=== PATIENT | female | born 1990 | race Caucasian/White ===

== ENCOUNTER 2018-08-06 09:56 | Outpatient (CLI) | payer OTHER | END 2018-08-06 09:57 | disposition home or self-care (01) | LOC: DTY/OP 09:56 | PROVIDERS: ATTEND Surgery | DX: E66.01 Morbid (severe) obesity due to excess calories (principal) | CPT/HCPCS: 97802 ==

== ENCOUNTER 2018-08-06 11:36 | Outpatient (CLI) | payer OTHER ==
[2018-08-06 12:54] LABS: Hemoglobin A1c 5.4 % (4.0-6.0)
[2018-08-06 13:09] LABS: BHCG - Serum Negative (NEGATIVE); Pregs Control Background? CLEAR/WHITE (CLR/WHITE); Pregs Control Bar Appear? YES (CONTROL BAR)
[2018-08-06 13:11] LABS: ALT (SGPT) 23 U/L (8-55); AST (SGOT) 20 U/L (5-34); Albumin 4.1 g/dL (3.5-5.0); Alkaline Phosphatase 105 U/L (40-150); Anion Gap 12 mmol/L (10-20); BUN (Urea Nitrogen) 12 mg/dL (7.0-18.7); Bilirubin, Direct 0.2 mg/dL (0.1-0.3); Bilirubin, Total 0.5 mg/dL (0.2-1.2); Calc. Creatinine Clearance 0 mL/min (70-130); Calcium 9.1 mg/dL (7.8-10.44); Carbon Dioxide 21 mmol/L (22-29); Chloride 108 mmol/L (98-107); Estimated GFR-MDRD Greater than 90; Globulin 2.8 g/dL (2.4-3.5); Glucose 91 mg/dL (70-105); Potassium 3.7 mmol/L (3.5-5.1); Protein, Total 6.9 g/dL (6.0-8.3); Sodium 137 mmol/L (136-145)
--- NOTE | 2018-08-06 15:47 | RAD ---
TWO VIEW CHEST: Comparison: None. Indication: Pre-operative evaluation. FINDINGS: The lungs are clear. No effusion or pneumothorax. Cardiac silhouette is normal is normal in size. IMPRESSION: No focal consolidation. POS: [facility]
[2018-08-06 19:30] LABS: #Basophils 0.1 thou/uL (0.0-0.2); #Eosinphils 0.1 thou/uL (0.0-0.7); #Lymphocytes 3.7 thou/uL (1.20-3.40); #Monocytes 0.8 thou/uL (0.11-0.59); #Neutrophils 4.3 thou/uL (1.40-6.50); %Basophils 1.3 % (0.0-1.0); %Eosinophils 1.2 % (0.0-10.0); %Lymphocytes 41.3 % (21.0-51.0); %Monocytes 8.6 % (0.0-10.0); %Neutrophils 47.6 % (42.0-75.0); Hemoglobin 14.5 g/dL (12.0-16.0); Mean Corpuscular Hemoglobin 30.6 pg (27.0-31.0); Mean Corpuscular Volume 92.6 fL (78.0-98.0); Mean Platelet Volume 7.5 fL (7.4-10.4); Platelet Count 255 thou/uL (130-400); RBC Distribution Width 11.5 % (11.5-14.5); Red Blood Cell (RBC) Count 4.75 mill/uL (4.20-5.40); White Blood Cell (WBC) Count 8.9 thou/uL (4.8-10.8)
== END 2018-08-06 11:37 | disposition home or self-care (01) ==
LOC: LABBT 11:36
PROVIDERS: ATTEND Surgery
DX: Z01.818 Encounter for other preprocedural examination (principal); E66.01 Morbid (severe) obesity due to excess calories
CPT/HCPCS: 71046; 80053; 80076; 83036; 84703; 85025; 93005; 93010

== ENCOUNTER 2018-08-06 16:00 | Inpatient (IN) | payer OTHER ==
[2018-08-23] MEDS ORDERED: CEFAZOLIN/Water 2 GM/20 ML SYRINGE ONE (06:38)
[2018-08-23] MEDS ORDERED: Heparin 5,000 UNITS/ML VIAL ONE (06:38)
[2018-08-23] MEDS ORDERED: Bupivacaine/Epinephrine 0.25% 30 ML VIAL ONE (06:57)
[2018-08-23] MEDS ORDERED: Fentanyl 100 MCG/2 ML VIAL ONE (07:21)
[2018-08-23] MEDS ORDERED: Midazolam HCl 2 mg/2 ml Vial ONE ×2 (07:21→07:26)
[2018-08-23] MEDS ORDERED: HYDROmorphone 2 MG/ML VIAL ONE ×2 (07:21→09:29)
[2018-08-23] MEDS ORDERED: HYDROmorphone 10 mg/100 ml CADD IVPB PRN (08:23)
[2018-08-23] MEDS ORDERED: Naloxone HCl 0.4 mg/ml Vial IV PRN (08:23)
[2018-08-23] MEDS ORDERED: HYDROmorphone 2 MG/ML VIAL SLOW IVP PRN (08:23)
[2018-08-23] MEDS ORDERED: Ondansetron PF 4 MG/2 ML Vial IVP PRN ×2 (08:23→08:56)
[2018-08-23] MEDS ORDERED: diphenhydrAMINE 25 MG CAP PO PRN (08:23)
[2018-08-23] MEDS ORDERED: Zolpidem Tartrate 5 MG TAB PO PRN (08:23)
[2018-08-23] MEDS ORDERED: Ondansetron HCl/PF 4 MG/2 ML Vial IVP PRN (08:23)
[2018-08-23] MEDS ORDERED: diphenhydrAMINE 50 MG/ML VIAL IVP PRN ×2 (08:23→08:56)
[2018-08-23] MEDS ORDERED: diphenhydrAMINE 50 MG/ML VIAL IM PRN (08:23)
[2018-08-23] MEDS ORDERED: Meperidine HCl/PF 25 MG/ML VIAL SLOW IVP PRN (08:23)
[2018-08-23] MEDS ORDERED: Promethazine HCl 25 MG/ML VIAL SLOW IVP PRN (08:23)
[2018-08-23] MEDS ORDERED: Promethazine HCl 25 MG/ML VIAL IM PRN ×3 (08:23→08:56)
[2018-08-23] MEDS ORDERED: Communication Order-Pharmacy FS SCH (08:30)
[2018-08-23] MEDS ORDERED: hydrALAZINE 20 MG/ML VIAL SLOW IVP PRN (08:56)
[2018-08-23] MEDS ORDERED: Hydrocodone-Acetamin 15 ML UDCUP PO PRN (08:56)
[2018-08-23] MEDS ORDERED: Dextrose 50% Abboject 50 ML SYRINGE SLOW IVP PRN (08:56)
[2018-08-23] MEDS ORDERED: Dextrose 5% in Water 1,000 ML IV PRN (08:56)
[2018-08-23] MEDS ORDERED: Pantoprazole 40 MG VIAL IVP SCH ×2 (09:00→21:00)
[2018-08-23] MEDS ORDERED: Enoxaparin Sodium 40 MG/0.4 ML SYRINGE SC SCH ×2 (09:00→21:00)
--- NOTE | 2018-08-23 10:14 | OP ---
PREOPERATIVE DIAGNOSIS: Morbid obesity. SURGEON: Joselo Del Rio M.D. PROCEDURE PERFORMED: Laparoscopic sleeve gastrectomy with esophagogastroscopy. INDICATIONS: This is a 28-year-old female who has been overweight for many years and attempted multi ple weight loss programs without success, is here for sleeve gastrectomy. FINDINGS: A 38-T[place] bougie used. PROCEDURE IN DETAIL: After informed consent was obtained, the patient was taken to the operating deep m and given general endotracheal anesthesia placed in the supine position. The abdomen was prepped a nd draped in usual fashion. Local anesthesia infiltrated subcutaneously and deep and a 12 mm incisio n was performed approximately 8 inches below the xiphoid slightly to the left. Veress needle inserte d. Drop test performed. Pneumoperitoneum was created to a volume of 2 liters of carbon dioxide. Ut ilizing a bladeless 12 mm trocar and 0 degree laparoscope, direct visual entry in the abdominal cavit y was performed. Pneumoperitoneum was created to a pressure of 15 mmHg. The patient placed in steep reverse Trendelenburg position. [place] liver retractor inserted. Left lobe of liver retracted s uperiorly. Pylorus identified. A 12 mm port placed on the right beneath it and two 12s placed left subcostal. The omentum was taken off the greater curvature 5 cm from the pylorus utilizing the LigaS ure. Short gastrics divided with LigaSure, left crura defined with the LigaSure. A 38-[place] bougie inserted directed into the antrum. The linear 60 mm green load stapler used to divide the antrum to the bougie, gold load along the bougie, and a series of blues through the angle of His. Intraoperat catarino endoscopy was performed. The video endoscope was inserted under direct vision and advanced into the sleeve. The staple line inspected. There was no bleeding. Staple line then tested by inflating the new stomach with pressurized air under water. There was no air leak. Stomach decompressed. Sc ope removed. The remnant stomach removed from the abdomen through the left lateral port site. The f ascia closed with 0 Vicryl suture and the GraNee needle. Trocars and retractors removed. The skin c losed with interrupted 4-0 Rapide. Dermabond applied. The patient tolerated the procedure well and was transferred to recovery in good condition. Sponge and needle count verified correct x2.
[2018-08-23 11:20] VITALS: BMI 44.6
[2018-08-23] MEDS: D5 1/2 NS w/20 mEq KCL 1,000 ML IV SCH ×3 (11:34→20:43)
[2018-08-23] MEDS ORDERED: Acetaminophen 1,000 MG in Premix Bag 1 BAG IVPB SCH (12:00)
[2018-08-23] MEDS ORDERED: CEFAZOLIN/Water 2 GM/20 ML SYRINGE SLOW IVP SCH ×2 (12:00→16:00)
[2018-08-23] MEDS ORDERED: Ketorolac Tromethamine 30 MG/ML VIAL IVP SCH (12:00)
[2018-08-23] MEDS: Acetaminophen 1,000 MG in Premix Bag 1 BAG IVPB SCH ×2 (14:06→20:21)
[2018-08-23] MEDS: Ketorolac Tromethamine 30 MG/ML VIAL IVP SCH ×2 (14:07→20:22)
[2018-08-23] MEDS: CEFAZOLIN 2 GM/50 ML-DEXTROSE 50 ML IVPB SCH ×2 (16:25→23:48)
[2018-08-23] MEDS ORDERED: Sodium Chloride 0.9% 500 ML IVPB SCH (17:30)
[2018-08-23] MEDS ORDERED: Scopolamine 1.5 mg/72 hour Patch TOP SCH (18:00)
[2018-08-24] MEDS: Acetaminophen 1,000 MG in Premix Bag 1 BAG IVPB SCH ×2 (03:20→08:04)
[2018-08-24] MEDS: Ketorolac Tromethamine 30 MG/ML VIAL IVP SCH ×2 (03:20→07:59)
[2018-08-24 06:18] LABS: #Eosinphils 0.2 thou/uL (0.0-0.7); #Lymphocytes 2.6 thou/uL (1.20-3.40); #Neutrophils 7.9 thou/uL (1.40-6.50); %Basophils 0.2 % (0.0-1.0); %Eosinophils 1.3 % (0.0-10.0); %Lymphocytes 22.1 % (21.0-51.0); %Monocytes 8.6 % (0.0-10.0); %Neutrophils 67.8 % (42.0-75.0); Hemoglobin 13.9 g/dL (12.0-16.0); Mean Corpuscular HGB CONC 32.3 g/dL (32.0-36.0); Mean Corpuscular Hemoglobin 31.5 pg (27.0-31.0); Mean Corpuscular Volume 97.7 fL (78.0-98.0); Mean Platelet Volume 8.4 fL (7.4-10.4); Platelet Count 180 thou/uL (130-400); RBC Distribution Width 11.8 % (11.5-14.5); Red Blood Cell (RBC) Count 4.42 mill/uL (4.20-5.40); White Blood Cell (WBC) Count 11.7 thou/uL (4.8-10.8)
[2018-08-24 06:57] LABS: Anion Gap 12 mmol/L (10-20); BUN (Urea Nitrogen) 4 mg/dL (7.0-18.7); Calc. Creatinine Clearance 207 mL/min (70-130); Calcium 8.5 mg/dL (7.8-10.44); Carbon Dioxide 22 mmol/L (22-29); Chloride 110 mmol/L (98-107); Estimated GFR-MDRD Greater than 90; Glucose 92 mg/dL (70-105); Potassium 3.9 mmol/L (3.5-5.1); Sodium 140 mmol/L (136-145)
[2018-08-24] MEDS: D5 1/2 NS w/20 mEq KCL 1,000 ML IV SCH (09:57)
[2018-08-24] MEDS ORDERED: GASTROGRAFIN 30 ML BOT ONE (10:45)
--- NOTE | 2018-08-24 10:48 | RAD ---
UPPER GI/BARIUM SWALLOW: History: 28-year-old female status post gastric bypass and vertical sleeve. Fluoroscopy: Fluoroscopy time 0.3 minutes, dose 6.287 Gycm2 FINDINGS: Patient was given 15 cc of Gastrografin in the upright position. Contrast media passed readily throug h the distal esophagus and post-operative stomach. No evidence for extravasation of obstruction. IMPRESSION: Unremarkable post gastric sleeve appearance. No obstruction or evidence of extravasation. POS: [facility]
[2018-08-24] MEDS ORDERED: Hydrocodone-Acetamin 15 ML UDCUP PO PRN (10:51)
[2018-08-24 11:25] VITALS: BP 124/81; TEMP 98.6
--- NOTE | 2018-08-24 12:50 | DIS ---
DISCHARGE DIAGNOSIS: Morbid obesity. PROCEDURES DURING ADMISSION: Laparoscopic sleeve gastrectomy, intraoperative esophagogastroscopy, po stoperative Gastrografin swallow. HOSPITAL COURSE: The patient was admitted, taken to the operating room where she underwent a sleeve gastrectomy. Postoperatively, she has done well. Her pain is well controlled. The x-ray showed no problems. She was started on liquids. She is tolerating them well. She is discharged home in good condition on hydrocodone and Zofran. She will follow up with me in 2 weeks.
== END 2018-08-24 11:55 | disposition home or self-care (01) | DRG 621 ==
LOC: SURG A 08-23 06:00
PROVIDERS: ADMIT Surgery; ATTEND Surgery
PROC: 0DB64Z3 Excision of Stomach, Percutaneous Endoscopic Approach, Vertical (ICD-10-PCS; principal; 2018-08-23)
PROC: 0DJ08ZZ Inspection of Upper Intestinal Tract, Via Natural or Artificial Opening Endoscopic (ICD-10-PCS; 2018-08-23)
DX: E66.01 Morbid (severe) obesity due to excess calories (principal); Z68.42 Body mass index [BMI] 45.0-49.9, adult
CPT/HCPCS: 74241; 80048; 85025; 88307; 88312; 94760; C9113; J0131; J1170; J1644; J1650; J1885; J2250; J2405; J2550; J3010; J7050

== ENCOUNTER 2018-11-26 07:22 | Outpatient (CLI) | payer BC ==
--- NOTE | 2018-11-26 09:10 | ULT ---
ULTRASOUND ABDOMEN LIMITED: (RIGHT UPPER QUADRANT) HISTORY: Epigastric abdominal pain, R10.13 in 28-year-old female. FINDINGS: Gallbladder: Several moderate sized mobile gallstones. The largest one is at least 20 mm. Normal wall thickness. No pericholecystic fluid. No sonographic Earl's sign. Common duct: 2 mm Liver: Normal size and echogenicity Pancreas: Nonspecific sonographic appearance Right kidney: No hydronephrosis IMPRESSION: Positive for cholelithiasis. MELODY Artis POS: [facility]
== END 2018-11-26 07:23 | disposition home or self-care (01) ==
LOC: BICULT 07:22
PROVIDERS: ATTEND Surgery
DX: R10.13 Epigastric pain (principal); K80.20 Calculus of gallbladder without cholecystitis without obstruction
CPT/HCPCS: 36415; 76705; 80053; 80061; 82248; 82306; 82607; 82746; 84425; 84443; 85027

== ENCOUNTER 2018-11-30 08:38 | Day surgery (SDC) | payer BC ==
[2018-11-29 12:10] VITALS: BMI 33.8
[2018-11-30] MEDS ORDERED: cefOXitin Sodium/Dextrose,Iso 2 GM in Premix Bag 1 BAG IVPB SCH (09:15)
[2018-11-30] MEDS ORDERED: Bupivacaine HCl 0.5%/Epinephrine 1:200,000/PF 30 ml Vial ONE (10:00)
[2018-11-30] MEDS ORDERED: Fentanyl 100 MCG/2 ML VIAL ONE ×2 (10:05→11:50)
[2018-11-30] MEDS ORDERED: Midazolam HCl 2 mg/2 ml Vial ONE ×2 (10:05→10:09)
[2018-11-30] MEDS ORDERED: Lidocaine 2% Jelly 5 ML TUBE ONE (10:12)
[2018-11-30] MEDS ORDERED: Ketorolac Tromethamine 30 MG/ML VIAL ONE (11:50)
--- NOTE | 2018-11-30 11:58 | OP ---
DATE OF PROCEDURE: 11/30/2018 PREOPERATIVE DIAGNOSIS: Symptomatic cholelithiasis. PROCEDURE PERFORMED: Laparoscopic cholecystectomy. INDICATIONS: A 28-year-old female, who has been having epigastric and right upper quadrant pain, worse after eating. Ultrasound showed cholelithiasis. FINDINGS: Small caliber cystic duct. DESCRIPTION OF PROCEDURE: After informed consent was obtained, the patient was taken to the operating room and given general endotracheal anesthesia, placed in supine position. Abdomen was prepped and draped in usual fashion. Local anesthesia infiltrated subcutaneously and deep, and a subumbilical incision was performed. Subcu divided sharply. The fascia grasped and 2 stay sutures of 0 Vicryl placed in each side of midline. Midline incised, digital palpation revealed no local adhesions. A blunt 12 mm trocar inserted. Pneumoperitoneum was created to a pressure of 15 mmHg. A 0-degree laparoscope was inserted under direct vision. Three 5 mm ports were placed subcostally. Gallbladder was grasped and advanced superiorly. Peritoneum lysed distally to reveal the cystic duct artery in critical view. These were triply ligated and divided. The gallbladder removed from its fossa utilizing electrocautery, removed from the abdomen through the umbilical port. Hemostasis assured. Trocars and retractors removed. The fascia was closed with interrupted 0 Vicryl suture. The skin closed with interrupted 4-0 Rapide. Dermabond applied. The patient tolerated the procedure well, transferred to Recovery in good condition. Sponge and needle count verified correct x2. Job ID: [id number]
[2018-11-30] MEDS ORDERED: Ondansetron ODT 4 MG TAB ONE (13:42)
== END 2018-11-30 13:50 | disposition home or self-care (01) ==
LOC: SDC 08:38
PROVIDERS: ATTEND Surgery
PROC: 0FT44ZZ Resection of Gallbladder, Percutaneous Endoscopic Approach (ICD-10-PCS; principal; 2018-11-30)
DX: K80.10 Calculus of gallbladder with chronic cholecystitis without obstruction (principal); F41.9 Anxiety disorder, unspecified; Z79.899 Other long term (current) drug therapy; Z91.048 Other nonmedicinal substance allergy status; Z98.84 Bariatric surgery status
CPT/HCPCS: 88304; J0670; J1885; J2250; J3010; Q0162

== ENCOUNTER 2018-12-02 11:22 | Observation (INO) | payer BC ==
--- NOTE | 2018-12-02 12:28 | RAD ---
KUB: Date: 12/02/18 INDICATION: Nausea and vomiting. COMPARISON: None. FINDINGS: Surgical clips within the upper abdomen. Bowel gas pattern is unobstructed. No suspicious calcificati ons evident. No acute osseous abnormality noted. IMPRESSION: No acute abnormality. POS: [facility]
[2018-12-02] MEDS ORDERED: Ondansetron PF 4 MG/2 ML Vial ONE (12:57)
[2018-12-02 13:03] LABS: #Lymphocytes 1.6 thou/uL (1.20-3.40); #Monocytes 0.6 thou/uL (0.11-0.59); #Neutrophils 4.9 thou/uL (1.40-6.50); %Basophils 0.2 % (0.0-1.0); %Eosinophils 0.2 % (0.0-10.0); %Lymphocytes 22.8 % (21.0-51.0); %Monocytes 7.9 % (0.0-10.0); %Neutrophils 68.9 % (42.0-75.0); Hemoglobin 14.4 g/dL (12.0-16.0); Mean Corpuscular Hemoglobin 31.1 pg (27.0-31.0); Mean Corpuscular Volume 94.2 fL (78.0-98.0); Mean Platelet Volume 8.8 fL (7.4-10.4); Platelet Count 175 thou/uL (130-400); RBC Distribution Width 12.8 % (11.5-14.5); Red Blood Cell (RBC) Count 4.63 mill/uL (4.20-5.40); White Blood Cell (WBC) Count 7.1 thou/uL (4.8-10.8)
[2018-12-02 13:28] LABS: ALT (SGPT) 57 U/L (8-55); AST (SGOT) 39 U/L (5-34); Albumin 3.8 g/dL (3.5-5.0); Alkaline Phosphatase 91 U/L (40-150); Anion Gap 19 mmol/L (10-20); BUN (Urea Nitrogen) 4 mg/dL (7.0-18.7); Bilirubin, Total 0.4 mg/dL (0.2-1.2); Calc. Creatinine Clearance 0 mL/min (70-130); Calcium 9.1 mg/dL (7.8-10.44); Carbon Dioxide 18 mmol/L (22-29); Chloride 104 mmol/L (98-107); Estimated GFR-MDRD Greater than 90; Globulin 2.4 g/dL (2.4-3.5); Glucose 87 mg/dL (70-105); Lipase 118 U/L (8-78); Potassium 3.5 mmol/L (3.5-5.1); Protein, Total 6.2 g/dL (6.0-8.3); Sodium 137 mmol/L (136-145)
[2018-12-02] MEDS ORDERED: Promethazine HCl 25 MG/ML VIAL ONE (13:53)
[2018-12-02 15:10] LABS: Bilirubin Small (Negative); Blood, Urine Negative (Negative); Clarity CLOUDY (Clear); Glucose, Urine (Dipstick) Negative (Negative); Leukocyte Negative (Negative); Nitrite Negative (Negative); Protein, Urine (Dipstick) 100 mg/dL (Neg-Trace); Specific Gravity, Urine 1.027 (1.002-1.036); Urobilinogen 0.2 mg/dL (0.2-1.0)
[2018-12-02 15:12] LABS: Bacteria/HPF Rare-Few HPF (None Seen); Hyaline Casts/LPF 4-6 HYALINE CAST LPF (0-3 Hyaline); Pathc Cast-AUWi Flag 1.45 (0-2.49)
[2018-12-02 15:25] LABS: Crystals/HPF 1+ CA OXALATE HPF (Negative); RBC/HPF None Seen HPF (0-3)
[2018-12-02 15:26] LABS: Squamous Epithelial 0-3 HPF (0-3); WBC/HPF 0-3 HPF (0-3)
[2018-12-02] MEDS ORDERED: Morphine 4 MG/ML VIAL ONE (15:45)
[2018-12-02] MEDS ORDERED: Ondansetron PF 4 MG/2 ML Vial IVP PRN (17:55)
[2018-12-02] MEDS ORDERED: Morphine 4 MG/ML VIAL SLOW IVP PRN ×3 (17:56→18:51)
[2018-12-02] MEDS ORDERED: Ondansetron ODT 4 MG TAB PO PRN (17:56)
[2018-12-02] MEDS ORDERED: Ondansetron PF 4 MG/2 ML Vial SLOW IVP PRN (18:51)
[2018-12-02] MEDS: D5 1/2 NS w/20 mEq KCL 1,000 ML IV SCH (19:53)
[2018-12-02 20:06] VITALS: BMI 34.9
[2018-12-02] MEDS ORDERED: Metoclopramide HCl 10 MG/2 ML VIAL IVP SCH (22:00)
[2018-12-03] MEDS: D5 1/2 NS w/20 mEq KCL 1,000 ML IV SCH ×3 (04:12→21:53)
[2018-12-03] MEDS ORDERED: Multivit, Adult Inj 10 ML VIAL IV SCH (09:15)
[2018-12-03] MEDS: Pantoprazole 40 MG VIAL IVP SCH (09:31)
--- NOTE | 2018-12-03 09:39 | HP ---
HISTORY OF PRESENT ILLNESS: The patient is status post lap [place] on Monday. She said that when she got home, she was unable to drink anything. She was vomiting everything she tried to drink and got dehydrated. She came to the emergency room last night and was admitted. She denies any flatus or bowel movement in a few days. PAST MEDICAL HISTORY: Significant for anxiety. PAST SURGICAL HISTORY: She has had adenoids removed. She has had a sleeve gastrectomy in July. ALLERGIES: SHE HAS NO KNOWN DRUG ALLERGIES. FAMILY HISTORY: Diabetes in her mother. SOCIAL HISTORY: She is single. No tobacco. Occasional alcohol. PHYSICAL EXAMINATION: GENERAL: She is an obese female, lying still, in no apparent distress. VITAL SIGNS: Her temperature is 97.9, pulse 90, blood pressure 117/78. HEENT: There is no jaundice. LUNGS: Clear. HEART: Regular rate and rhythm. ABDOMEN: Soft, nondistended. Incisions are healing well, although she does have a reaction from the Dermabond with some erythema under the glue. No significant tenderness. EXTREMITIES: Unremarkable. LABORATORY DATA: White count 7.1, H and H 14 and 43, platelet count 175. Electrolytes; AST mildly elevated at 39, ALT at 57, lipase at 118. ASSESSMENT: Dysphagia, nausea, and vomiting. PLAN: Since she is feeling better, we will try her on some full liquids. If she has any problems, we will repeat the swallow study. Job ID: [id number]
[2018-12-03] MEDS ORDERED: Multivitamins, Adult 10 ML in D5 1/2 NS w/20 mEq KCL 1,000 ML IV SCH (11:00)
[2018-12-04] MEDS: D5 1/2 NS w/20 mEq KCL 1,000 ML IV SCH (05:37)
[2018-12-04] MEDS: Pantoprazole 40 MG VIAL IVP SCH (09:18)
[2018-12-04 11:26] VITALS: BP 114/78; TEMP 98.2
--- NOTE | 2018-12-05 01:40 | DIS ---
DATE OF ADMISSION: 12/02/2018 DATE OF DISCHARGE: 12/04/2018 DISCHARGE DIAGNOSIS: Dehydration. PROCEDURES DURING ADMISSION: IV fluids. HOSPITAL COURSE: The patient was admitted, given IV fluids. She was rehydrated. She is now feeling well. She is tolerating liquids well. No abdominal pain. She is discharged home in good condition on her usual medication. She will follow up with me in 2 weeks. Job ID: [id number]
== END 2018-12-04 12:44 | disposition home or self-care (01) ==
LOC: ERS 11:22 → SURG A 15:45
PROVIDERS: ADMIT Surgery; ATTEND Surgery
DX: E86.0 Dehydration (principal); E66.9 Obesity, unspecified; Z68.35 Body mass index [BMI] 35.0-35.9, adult; F41.9 Anxiety disorder, unspecified; Z90.89 Acquired absence of other organs; Z90.49 Acquired absence of other specified parts of digestive tract; Z98.84 Bariatric surgery status; Z91.09 Other allergy status, other than to drugs and biological substances; Z79.899 Other long term (current) drug therapy
CPT/HCPCS: 36415; 74018; 80053; 81003; 81015; 83690; 84425; 85025; 87086; 96361; 96365; 96366; 96367; 96374; 96375; 96376; C9113; G0378; J2270; J2405; J2550; J2765; J3411; J7050